=== PATIENT | male | born 1955 | race Caucasian/White ===

== ENCOUNTER 2021-01-16 19:44 | Inpatient (IN) | payer BC, OTHER ==
[~2021-01-16] VITALS: Ht 185.4 cm; Wt 139.2 kg
[2021-01-16 22:05] LABS: Basophils # (auto) 0 10 ^3/uL (0-0.2); Basophils % (auto) 0.2 % (0.0-2.0); Eosinophils # (auto) 0.3 10 ^3/uL (0-0.8); Eosinophils % (auto) 1.7 % (0.0-7.0); Hematocrit 50.9 % (41.0-53.0); Hemoglobin 17.4 g/dL (13.5-17.5); Lymphocytes # (auto) 1.9 10 ^3/uL (0.4-5.4); Lymphocytes % (auto) 11.9 % (10.0-50.0); Mean Corpuscular Hemoglobin 31.6 pg (28.0-32.0); Mean Corpuscular Hgb Conc. 34.1 g/dL (32.0-36.0); Mean Corpuscular Volume 92.7 fL (80.0-100.0); Monocytes # (auto) 1.3 10 ^3/uL (0-1.3); Monocytes % (auto) 8.2 % (0.0-12.0); Neutrophils # (auto) 12.6 10 ^3/uL (1.6-8.6); Nucleated Red Blood Cells % 0.1 %; Red Blood Cells 5.49 10^6/uL (4.5-5.90); Red Cell Distribution Width 14.1 % (11.8-14.3); White Blood Cell 16.2 10^3/uL (4.4-10.8)
[2021-01-16 22:22] LABS: Calcium 9.2 mg/dL (8.5-10.1); Chloride 107 mmol/L (98-107); Sodium 141 mmol/L (136-145)
[2021-01-16 22:26] LABS: Alanine Aminotransferase 41 U/L (16-61); Albumin 3.9 g/dL (3.4-5.0); Anion Gap 4 (5-15); Aspartate Aminotransferase 19 U/L (15-37); BUN/Creatinine Ratio 13.4; Blood Urea Nitrogen 17 mg/dL (7-18); Carbon Dioxide 30 mmol/L (21-32); GFR African American 73 mL/min; GFR Non-African American 60 mL/min; Glucose 101 mg/dL (74-106); Magnesium 2.1 mg/dL (1.6-2.6)
[2021-01-16] MEDS ORDERED: NITROGLYCERIN 0.4 MG SL TAB SL PRN (22:30)
[2021-01-16] MEDS ORDERED: ONDANSETRON HCL 4 MG/2 ML VIAL IV PRN (22:30)
[2021-01-16 22:41] LABS: Alkaline Phosphatase 95 U/L (45-117); Bilirubin, Total 0.8 mg/dL (0.2-1.0); Total Protein 7.6 g/dL (6.4-8.2)
[2021-01-17] MEDS ORDERED: AMIODARONE HCL 150 MG in D5W 5% 100 ML IV ONE (02:00)
[2021-01-17] MEDS ORDERED: AMIODARONE HCL (50 MG/ ML) 3 ML VIAL IV ONE (02:04)
[2021-01-17] MEDS ORDERED: AMIODARONE 450mg/250ml AE 250 ML IV SCH ×2 (02:15→08:15)
[2021-01-17] MEDS: MORPHINE SULF INJ 2 MG/ML SYRINGE 1ML IV PRN ×5 (03:09→23:42)
[2021-01-17 08:56] LABS: Basophils # (auto) 0.1 10 ^3/uL (0-0.2); Basophils % (auto) 0.4 % (0.0-2.0); Eosinophils # (auto) 0.1 10 ^3/uL (0-0.8); Eosinophils % (auto) 0.6 % (0.0-7.0); Hematocrit 47.5 % (41.0-53.0); Lymphocytes # (auto) 1.4 10 ^3/uL (0.4-5.4); Lymphocytes % (auto) 10.2 % (10.0-50.0); Mean Corpuscular Hemoglobin 31.1 pg (28.0-32.0); Mean Corpuscular Hgb Conc. 33.7 g/dL (32.0-36.0); Mean Corpuscular Volume 92.4 fL (80.0-100.0); Monocytes # (auto) 1.9 10 ^3/uL (0-1.3); Neutrophils # (auto) 10.1 10 ^3/uL (1.6-8.6); Neutrophils % (auto) 74.8 % (37.0-80.0); Nucleated Red Blood Cells % 0.1 %; Red Blood Cells 5.14 10^6/uL (4.5-5.90); Red Cell Distribution Width 13.9 % (11.8-14.3); White Blood Cell 13.5 10^3/uL (4.4-10.8)
[2021-01-17 09:14] LABS: Anion Gap 9 (5-15); Blood Urea Nitrogen 18 mg/dL (7-18); Calcium 8.6 mg/dL (8.5-10.1); Carbon Dioxide 24 mmol/L (21-32); Chloride 105 mmol/L (98-107); Glucose 169 mg/dL (74-106); Sodium 138 mmol/L (136-145)
[2021-01-17 09:20] LABS: BUN/Creatinine Ratio 13.2; GFR African American 67 mL/min; GFR Non-African American 56 mL/min
[2021-01-17] MEDS ORDERED: METOPROLOL TARTRATE 50 MG TAB PO SCH (10:00)
[2021-01-17] MEDS ORDERED: ASPirin 81 mg TAB PO SCH (10:00)
[2021-01-17] MEDS ORDERED: AMIODARONE HCL 200 MG TAB PO ONE (10:00)
[2021-01-17] MEDS: FAMOTIDINE 20 MG TAB PO SCH ×2 (10:01→22:04)
[2021-01-17] MEDS: DIGOXIN 0.125 MG TAB PO SCH (10:01)
[2021-01-17] MEDS: FUROSEMIDE 20 MG TAB PO SCH (10:01)
[2021-01-17 13:00] VITALS: BP 106/62
[2021-01-17] MEDS ORDERED: [UNRECOGNIZED DRUG - CODE] IJ (14:27)
[2021-01-17] MEDS ORDERED: APIX5TAB PO (14:27)
[2021-01-17] MEDS ORDERED: TAMS0.4C36 PO (14:27)
[2021-01-17] MEDS ORDERED: POTA10TA32 PO (14:27)
[2021-01-17] MEDS ORDERED: FURO20TA3 PO (14:27)
[2021-01-17] MEDS ORDERED: METO25TA93 PO (14:27)
[2021-01-17 16:58] VITALS: BP 102/69
[2021-01-17 17:30] LABS: Cholesterol 142 mg/dL (< 200); HDL Cholesterol 38 mg/dL (40-59); LDL Cholesterol 93 mg/dL (< 100); Triglycerides 125 mg/dL (< 150)
[2021-01-17 22:00] VITALS: BP 118/65
[2021-01-17] MEDS: METOPROLOL TARTRATE 25 MG TAB PO SCH (22:00)
[2021-01-17] MEDS: ATORVASTATIN 20 MG TAB PO SCH (22:03)
[2021-01-17] MEDS: AMIODARONE HCL 200 MG TAB PO SCH (22:03)
[2021-01-17] MEDS: TEMAZEPAM 15 MG CAP PO PRN (22:04)
[2021-01-17] MEDS: ENOXAPARIN SOD 40 MG/0.4 ML SYRINGE SC SCH (22:04)
[2021-01-18] MEDS: MORPHINE SULF INJ 2 MG/ML SYRINGE 1ML IV PRN ×2 (00:40→03:37)
[2021-01-18] MEDS ORDERED: HYDROcodone-ACET 7.5/325MG TAB PO ONE (04:30)
[2021-01-18 05:00] VITALS: BP 106/55
[2021-01-18] MEDS ORDERED: DIGOXIN (250MCG/ML) 2 ML AMPULE IV ONE ×3 (06:30→17:15)
[2021-01-18 06:47] LABS: Basophils # (auto) 0.1 10 ^3/uL (0-0.2); Basophils % (auto) 0.6 % (0.0-2.0); Eosinophils # (auto) 0.1 10 ^3/uL (0-0.8); Eosinophils % (auto) 0.7 % (0.0-7.0); Hematocrit 49.2 % (41.0-53.0); Hemoglobin 16.4 g/dL (13.5-17.5); Lymphocytes # (auto) 1.2 10 ^3/uL (0.4-5.4); Lymphocytes % (auto) 7.5 % (10.0-50.0); Mean Corpuscular Hemoglobin 30.9 pg (28.0-32.0); Mean Corpuscular Hgb Conc. 33.3 g/dL (32.0-36.0); Mean Corpuscular Volume 92.7 fL (80.0-100.0); Monocytes # (auto) 1.4 10 ^3/uL (0-1.3); Monocytes % (auto) 8.8 % (0.0-12.0); Neutrophils # (auto) 12.7 10 ^3/uL (1.6-8.6); Neutrophils % (auto) 82.4 % (37.0-80.0); Red Cell Distribution Width 13.9 % (11.8-14.3); White Blood Cell 15.5 10^3/uL (4.4-10.8)
[2021-01-18 07:29] LABS: Albumin 3.6 g/dL (3.4-5.0); Anion Gap 7 (5-15); Blood Urea Nitrogen 17 mg/dL (7-18); Calcium 8.6 mg/dL (8.5-10.1); Carbon Dioxide 25 mmol/L (21-32); Chloride 104 mmol/L (98-107); Glucose 162 mg/dL (74-106); Potassium 3.8 mmol/L (3.5-5.1); Sodium 136 mmol/L (136-145)
[2021-01-18 07:37] LABS: BUN/Creatinine Ratio 14.5; GFR African American 80 mL/min; GFR Non-African American 66 mL/min
[2021-01-18 07:38] LABS: Alkaline Phosphatase 75 U/L (45-117)
[2021-01-18 07:47] LABS: Alanine Aminotransferase 27 U/L (16-61); Aspartate Aminotransferase 14 U/L (15-37); Bilirubin, Total 1.3 mg/dL (0.2-1.0)
[2021-01-18 07:48] LABS: Cholesterol 159 mg/dL (< 200); HDL Cholesterol 41 mg/dL (40-59); LDL Cholesterol 102 mg/dL (< 100); Total Protein 7.1 g/dL (6.4-8.2); Triglycerides 118 mg/dL (< 150)
[2021-01-18] MEDS: METOPROLOL TARTRATE 25 MG TAB PO SCH ×2 (08:31→22:16)
[2021-01-18] MEDS: DIGOXIN 0.125 MG TAB PO SCH (08:31)
[2021-01-18 09:00] VITALS: BP 115/68
[2021-01-18] MEDS: ENOXAPARIN SOD 40 MG/0.4 ML SYRINGE SC SCH ×2 (10:00→22:17)
[2021-01-18] MEDS: FUROSEMIDE 20 MG TAB PO SCH (10:00)
[2021-01-18] MEDS: ASPirin 81 mg TAB PO SCH (10:00)
[2021-01-18] MEDS: AMIODARONE HCL 200 MG TAB PO SCH ×2 (10:00→22:16)
[2021-01-18 13:00] VITALS: BP 108/74
[2021-01-18] MEDS ORDERED: CEFTRIAXONE SODIUM 2 GM in D5W 5% 50 ML IV ONE (15:45)
[2021-01-18] MEDS ORDERED: AZITHROMYCIN 250 MG TAB PO ONE (15:45)
[2021-01-18] MEDS ORDERED: HYDROcodone-ACET 5/325MG TAB PO PRN (16:00)
[2021-01-18 17:00] VITALS: BP 102/68
[2021-01-18 17:16] LABS: Urine Bacteria NONE SEEN /hpf (None Seen); Urine Blood Negative /uL (Negative); Urine Mucus FEW (None Seen); Urine Specific Gravity 1.019 (1.001-1.035); Urine WBC 1 /hpf (0 - 3)
[2021-01-18 17:31] LABS: Alcohol, Urine < 3.0 mg/dL (0-10); Amphetamine Screen, Urine NEGATIVE (NEGATIVE); Barbiturate Scree,Urine NEGATIVE (NEGATIVE); Benzodiazephine Screen, Urine NEGATIVE (NEGATIVE); Cannabinoid Screen, Urine NEGATIVE (NEGATIVE); Cocaine Screen, Urine NEGATIVE (NEGATIVE); Opiate Scree,Urine POSITIVE (NEGATIVE); Phencyclidine Screen, Urine NEGATIVE (NEGATIVE)
[2021-01-18] MEDS ORDERED: FUROSEMIDE 20 MG/2 ML VIAL IV ONE (20:30)
[2021-01-18 22:00] VITALS: BP 108/75
[2021-01-18] MEDS: ATORVASTATIN 20 MG TAB PO SCH (22:00)
[2021-01-18] MEDS: TEMAZEPAM 15 MG CAP PO PRN (22:20)
[2021-01-19 05:00] VITALS: BP 103/62
[2021-01-19] MEDS ORDERED: FUROSEMIDE 20 MG/2 ML VIAL IV SCH (06:00)
[2021-01-19 09:00] VITALS: BP 114/75
[2021-01-19] MEDS: ASPirin 81 mg TAB PO SCH (09:02)
[2021-01-19] MEDS: DIGOXIN 0.125 MG TAB PO SCH (09:02)
[2021-01-19] MEDS: METOPROLOL TARTRATE 25 MG TAB PO SCH (09:03)
[2021-01-19] MEDS: ENOXAPARIN SOD 40 MG/0.4 ML SYRINGE SC SCH (09:03)
[2021-01-19] MEDS: AMIODARONE HCL 200 MG TAB PO SCH (09:03)
[2021-01-19] MEDS ORDERED: CEFTRIAXONE SODIUM 2 GM in D5W 5% 50 ML IV SCH (10:00)
[2021-01-19] MEDS ORDERED: AZITHROMYCIN 250 MG TAB PO SCH (10:00)
[2021-01-19] MEDS ORDERED: POTASSIUM CHL 20 Meq TABLET PO SCH (10:00)
[2021-01-19 13:00] VITALS: BP 128/70
[2021-01-19] MEDS ORDERED: DOXY-286 PO (16:01)
[2021-01-19] MEDS ORDERED: AMIO200T33 PO (16:01)
[2021-01-19 16:07] VITALS: BP 123/98
== END 2021-01-19 16:33 | disposition home or self-care (01) | DRG 313 ==
LOC: ER 19:48 → EDSEX 19:48 → TELE 22:19 → TELE-WESTW 01-17 11:36
PROVIDERS: ADMIT Nurse Practitioner; ATTEND Internal Medicine
DX: R07.9 Chest pain, unspecified (principal); N17.0 Acute kidney failure with tubular necrosis; J18.9 Pneumonia, unspecified organism; I50.43 Acute on chronic combined systolic (congestive) and diastolic (congestive) heart failure; I24.9 Acute ischemic heart disease, unspecified; R65.10 Systemic inflammatory response syndrome (SIRS) of non-infectious origin without acute organ dysfunction; J98.11 Atelectasis; I25.110 Atherosclerotic heart disease of native coronary artery with unstable angina pectoris; Z68.42 Body mass index [BMI] 45.0-49.9, adult; Z20.822 Contact with and (suspected) exposure to COVID-19; I11.0 Hypertensive heart disease with heart failure; E66.01 Morbid (severe) obesity due to excess calories; N40.0 Benign prostatic hyperplasia without lower urinary tract symptoms; I48.91 Unspecified atrial fibrillation; M17.11 Unilateral primary osteoarthritis, right knee; I27.20 Pulmonary hypertension, unspecified; Z82.49 Family history of ischemic heart disease and other diseases of the circulatory system; Z87.442 Personal history of urinary calculi
CPT/HCPCS: 36415; 71045; 80048; 80053; 80061; 80162; 80307; 81001; 83735; 83880; 84443; 84484; 85025; 85379; 87040; 87070; 87081; 87205; 87426; 93005; 93306; 96365; 96375; G0378; J0696; J2405; J7060